=== PATIENT | female | born 1945 | race Caucasian/White ===

== ENCOUNTER → 2020-04-29 14:17 | Outpatient (CLI) | payer MEDICARE, SELFPAY ==
[2020-04-30 20:55] LABS: COVID19 Sendout Not Detected (Not Detect)
== END ==
PROVIDERS: Visit Provider Physician Assistant
DX: Z11.59 Encounter for screening for other viral diseases (principal)
CPT/HCPCS: 87635

== ENCOUNTER 2020-05-02 09:10 | Day surgery (SDC) | payer MEDICARE, SELFPAY ==
[2020-05-02] MEDS: PROPARACAINE 0.5% OPHTH SOL 2 DROPS EYE-LEFT (10:17)
[2020-05-02] MEDS: CATARACT EYE COMPOUND (10 DROPS/SYRINGE) 3 DROPS EYE-OP (10:19)
[2020-05-02 10:20] VITALS: BP 210/76; PULSE 72; RESP 20; TEMP 36.7; O2SAT 98; BMI 26.0
[2020-05-02 10:28] VITALS: BMI 26.0
--- NOTE | 2020-05-02 11:31 | PM.PREOP ---
Pre-operative Note Interval Note History & Physical reviewed/Exam performed by Physician: Yes Changes to H&P: No
--- NOTE | 2020-05-02 11:31 | PM.OP.1 ---
Operative Date/Time/Diagnoses Pre-op diagnosis: Nuclear Cataract Left eye Post-op diagnosis: same Procedure & Clinicians Same procedure as scheduled: Yes Surgeon: Aníbal Macias Anesthesia Type: MAC +/- and Sedation Operative Notes Procedure in detail: Patient brought to the operating suite. Tetracaine drops placed in the left eye. The marking instrument was used to helder the vertical and horizontal meridians. Patient was prepped and draped in sterile manner. Wire lid speculum was placed in the eye. marking instrument was used to helder the 140 degree meridain. Betadine drops were placed on the eye. This was irrigated. Lidocaine jelly was placed on the eye. A paracentesis port was created with a side-port blade. 0.1 mL 1% preservative free lidocaine was injected into the anterior chamber. The anterior chamber was deepened with viscoelastic. 2.6 mm keratome was used to create a temporal clear corneal incision. Cystotome and Utrata forceps were used to create continuous tear capsulorrhexis. Balanced salt solution was used to hydro dissect the nucleus. The phacoemulsification handpiece was inserted and the nucleus was removed using the stop and chop technique. The irrigation aspiration handpiece was inserted and the remaining cortex was removed. Anterior chamber was deepened with viscoelastic. An Boss [id number] intraocular lens with a power of 21.0 was injected into the capsular bag. Irrigation aspiration handpiece was inserted and the remaining viscoelastic was removed. The lens was rotated to the 140 degree meridian. Incision was hydrated with balanced salt solution and found to be leak free with pressure with Weck-Soumya sponges. 0.1 mL Vigamox injected anterior chamber. 0.3 mL Kenalog 10 mg was injected subconjunctivally. Lid speculum was removed. The patient left the operating room in excellent condition. Complications: none Post-operative Condition: stable Disposition: same day surgery
--- NOTE | 2020-05-02 11:53 | SUR.OPER ---
Supine on eye stretcher, head on extension cradle secured with tape. Arms tucked at sides with blanket. Pillow under knees.
[2020-05-02] MEDS: TETRACAINE 0.5% OPHTH DROPS 4 ML 2 DROPS EYE-LEFT (11:57)
[2020-05-02] MEDS: CHONDROIDTIN/SOD HYALURONATE 1.05 ML SYRINGE INTRAOCULA (12:00)
[2020-05-02] MEDS: LIDOCAINE JELLY 2% 5 ML 1 APPLIC TOP (12:01)
[2020-05-02] MEDS: MOXIFLOXACIN INJ 5 MG/ML VIAL EYE-OP (12:01)
[2020-05-02] MEDS: TRIAMCINOLONE 50 MG/5 ML VIAL INJ (12:02)
[2020-05-02] MEDS: PHENYLEPHRINE/LIDOCAINE VIAL (OR) 0.2 ML EYE-OP (12:02)
[2020-05-02] MEDS: BALANCED SALT IRRIG SOLN NO.2 500 ML, EPINEPHrine 1 MG IRR (12:03)
[2020-05-02 12:09] VITALS: BP 114/67; PULSE 51; RESP 16; TEMP 36.5; O2SAT 98
--- NOTE | 2020-05-02 12:26 | SUR.PHASEII ---
Pt came in with significantly elevated BP (210/76). She was supposed to start a PO BP med today but she did not take it this AM. Was treated by anesthesiology with metoprolol in OR. BP stabilized and HR down in 50's. Pt denies lightheadedness and dizziness. Informed to not take BP med today and to take it tomorrow. Pt acknowledges understanding. Left in w/c with RN escort to car with her .
== END 2020-05-02 12:21 | disposition home or self-care (01) ==
LOC: OR 09:15
PROVIDERS: PCP Family Medicine; Referring Provider Ophthalmology; Visit Provider Ophthalmology
PROC: (CPT 66984; principal; 2020-05-02 11:15)
DX: H25.12 Age-related nuclear cataract, left eye (principal); E11.9 Type 2 diabetes mellitus without complications; Z79.84 Long term (current) use of oral hypoglycemic drugs
CPT/HCPCS: 66984; J0171; J2250; J3010; J3301; V2787

== ENCOUNTER → 2020-05-13 15:23 | Outpatient (CLI) | payer MEDICARE, SELFPAY ==
[2020-05-14 06:15] LABS: COVID19 Sendout Not Detected (Not Detect)
== END ==
PROVIDERS: PCP Family Medicine; Visit Provider Physician Assistant
DX: Z11.59 Encounter for screening for other viral diseases (principal)
CPT/HCPCS: 87635

== ENCOUNTER 2020-05-16 08:45 | Day surgery (SDC) | payer MEDICARE, SELFPAY ==
[2020-05-16] MEDS: PROPARACAINE 0.5% OPHTH SOL 2 DROPS EYE-OP (09:41)
[2020-05-16] MEDS: CATARACT EYE COMPOUND (10 DROPS/SYRINGE) 3 DROPS EYE-OP (09:41)
[2020-05-16 09:44] VITALS: BP 187/80; PULSE 84; RESP 14; TEMP 36.4; O2SAT 98; BMI 25.7
--- NOTE | 2020-05-16 10:13 | P.OP_ITS ---
Operative Date/Time/Diagnoses Pre-op diagnosis: Nuclear cataract right eye Procedure & Clinicians Procedure: Cataract Surgery Same procedure as scheduled: Yes Surgeon: Aníbal Macias Anesthesia Type: MAC +/- and Sedation Operative Notes Procedure in detail: Patient brought to the operating suite. Tetracaine drops placed in the right eye. Marking instrument was used to helder the vertical and horizontal meridians. Patient was prepped and draped in sterile manner. Wire lid speculum was placed in the eye. Marking instrument was used to helder the 50 degree meridian. Betadine drops were placed on the eye. This was irrigated. Lidocaine jelly was placed on the eye. A paracentesis port was created with a side-port blade. 0.1 mL 1% preservative free lidocaine was injected into the anterior chamber. The anterior chamber was deepened with viscoelastic. 2.6 mm keratome was used to create a temporal clear corneal incision. Cystotome and [place] forceps were used to create continuous tear capsulorrhexis. Balanced salt solution was used to hydro dissect the nucleus. The phacoemulsification handpiece was inserted and the nucleus was removed using the stop and chop technique. The irrigation aspiration handpiece was inserted and the remaining cortex was removed. Anterior chamber was deepened with viscoelastic. An Boss [id number] intraocular lens with a power of 21.0 was injected into the capsular bag. Irrigation aspiration handpiece was inserted and the remaining viscoelastic was removed. The lens was rotated to the 50 degree meridian. Incision was hydrated with balanced salt solution and found to be leak free with pressure with Weck- Soumya sponges. 0.1 mL Vigamox injected anterior chamber. 0.3 mL Kenalog 10 mg was injected subconjunctivally. Lid speculum was removed. The patient left the operating room in excellent condition. Complications: none Post-operative Condition: stable Disposition: same day surgery
--- NOTE | 2020-05-16 10:13 | PM.PREOP ---
Pre-operative Note Interval Note History & Physical reviewed/Exam performed by Physician: Yes Changes to H&P: No
[2020-05-16] MEDS: LIDOCAINE JELLY 2% 5 ML 1 APPLIC TOP (10:32)
[2020-05-16] MEDS: PHENYLEPHRINE/LIDOCAINE VIAL (OR) 0.2 ML EYE-OP (10:32)
[2020-05-16] MEDS: TRIAMCINOLONE 50 MG/5 ML VIAL INJ (10:32)
[2020-05-16] MEDS: CHONDROIDTIN/SOD HYALURONATE 1.05 ML SYRINGE INTRAOCULA (10:33)
[2020-05-16] MEDS: MOXIFLOXACIN INJ 5 MG/ML VIAL EYE-OP (10:33)
[2020-05-16] MEDS: TETRACAINE 0.5% OPHTH DROPS 4 ML 2 DROPS EYE-OP (10:33)
[2020-05-16] MEDS: BALANCED SALT IRRIG SOLN NO.2 500 ML, EPINEPHrine 1 MG IRR (10:34)
[2020-05-16 10:45] VITALS: BP 141/81; PULSE 72; RESP 16; TEMP 36.4; O2SAT 99
[2020-05-16 11:15] VITALS: BP 116/69; PULSE 77; RESP 16; TEMP 36.5; O2SAT 97
== END 2020-05-16 11:15 | disposition home or self-care (01) ==
PROVIDERS: PCP Family Medicine; Referring Provider Family Medicine; Visit Provider Ophthalmology
PROC: (CPT 66984; principal; 2020-05-16 10:45)
DX: H25.11 Age-related nuclear cataract, right eye (principal); I10 Essential (primary) hypertension; E11.9 Type 2 diabetes mellitus without complications; Z79.84 Long term (current) use of oral hypoglycemic drugs
CPT/HCPCS: 66984; J0171; J2250; J3301; V2787

== ENCOUNTER → 2020-12-18 14:37 | Outpatient (CLI) | payer MEDICARE, SELFPAY ==
[2020-12-19 10:46] LABS: COVID19 -Nasal RAPID Negative (Negative)
== END ==
PROVIDERS: Family Provider Family Medicine; PCP Family Medicine; Visit Provider Physician Assistant
DX: Z20.822 Contact with and (suspected) exposure to COVID-19 (principal)
CPT/HCPCS: 87635; C9803